=== PATIENT | male | born 1970 | race Caucasian/White ===

== ENCOUNTER 2024-01-29 12:13 | Emergency (ER) | payer SELFPAY ==
[~2024-01-29] VITALS: Ht 182.9 cm; Wt 95.0 kg
[2024-01-29] MEDS ORDERED: traMADol HCL 50 MG/TAB PO ONE (12:45)
[2024-01-29 12:52] VITALS: BP 130/89
[2024-01-29 13:00] VITALS: BP 132/82
[2024-01-29 13:15] VITALS: BP 138/87
[2024-01-29 13:30] VITALS: BP 140/98
[2024-01-29] MEDS ORDERED: TRAMADOL HYDROC50 M1 PO (13:44)
[2024-01-29] MEDS ORDERED: NAPROXEN500 MG PO (13:44)
[2024-01-29 13:45] VITALS: BP 143/97
[2024-01-29 13:57] VITALS: BP 143/97
== END 2024-01-29 13:58 | disposition home or self-care (01) | DRG 563 ==
LOC: ED 12:13
DX: S63.501A Unspecified sprain of right wrist, initial encounter (principal); F17.210 Nicotine dependence, cigarettes, uncomplicated; W01.0XXA Fall on same level from slipping, tripping and stumbling without subsequent striking against object, initial encounter; Y93.K9 Activity, other involving animal care